=== PATIENT | male | born 1960 | race Caucasian/White ===

== ENCOUNTER 2020-11-19 14:36 | Emergency (ER) | payer OTHER ==
[~2020-11-19] VITALS: Ht 175.3 cm; Wt 86.4 kg
[2020-11-19 14:44] VITALS: Ht 175.3 cm; Wt 86.4 kg
[2020-11-19] MEDS ORDERED: LEXAPRO10 MG (14:48)
[2020-11-19] MEDS ORDERED: FISH OIL 1,0001 CA1 PO (14:48)
[2020-11-19] MEDS ORDERED: CIALIS10 MG PO (14:49)
[2020-11-19] MEDS ORDERED: PRAVACHOL20 MG PO (14:49)
[2020-11-19 15:19] LABS: BASOPHILS 1.5 % (0-2); EOSINOPHILS 1.8 % (0-7); HEMATOCRIT 43.5 % (42.0-54.0); HEMOGLOBIN 14.4 g/dL (13.5-17.5); IMMATURE GRANULOCYTES 0.2 % (0-5); LYMPHOCYTE ABS# 1.39 10x3/uL (1.32-3.57); LYMPHOCYTES 22.5 % (15-50); MCH 29.1 pg (26.0-34.0); MCHC 33.1 g/dL (31.0-37.0); MCV 87.9 fL (80.0-100.0); MEAN PLATELET VOLUME 11.1 fL (7.4-10.4); MONOCYTES 7.1 % (2-11); NEUTROPHIL ABS# 4.13 10x3/uL (1.78-5.38); NEUTROPHILS 66.9 % (40-80); PLATELET COUNT 200 10x3/uL (130-400); RBC 4.95 10x6/uL (4.20-6.10); RDW 12.6 % (11.5-14.5); WBC 6.2 10x3/uL (4.8-10.8)
[2020-11-19 15:28] LABS: APTT 32.3 SECONDS (22.8-39.4); INR 1.09 (0.85-1.17)
[2020-11-19 15:42] LABS: CALC OSMOLALITY 279 mosm/kg (275-300); CARBON DIOXIDE 29.3 mmol/L (21.0-32.0); CHLORIDE - SERUM 103 mmol/L (98-107); CREATININE - SERUM 1.2 mg/dL (0.6-1.3); GLUCOSE 109 mg/dL (74-106); POTASSIUM - SERUM 3.8 mmol/L (3.5-5.1); SODIUM 139 mmol/L (136-145); UREA NITROGEN 16 mg/dL (7-18); eGFR NON AFRICAN AMERICAN 65 mL/min (90-120)
[2020-11-19 15:59] LABS: ALBUMIN 3.5 g/dL (3.4-5.0); ALKALINE PHOSPHATASE 52 U/L (30-120); ALT (SGPT) 31 U/L (10-68); BILIRUBIN - TOTAL 0.25 mg/dL (0.2-1.3); CKMB 1.7 U/L (0.0-3.6); CREATINE KINASE 200 UL (21-232); MAGNESIUM - SERUM 2.1 mg/dL (1.8-2.4); PROTEIN - SERUM 7.2 g/dL (6.4-8.2); THYROID STIMULATING HORMONE 1.95 uIU/mL (0.36-3.74); TROPONIN-I < 0.017 ng/mL (0.000-0.060)
[2020-11-19 16:24] VITALS: BP 157/76
[2020-11-19] MEDS ORDERED: FLUTICASONE PRO16 GM NASAL (16:26)
[2020-11-19] MEDS ORDERED: ZYRTEC10 MG PO (16:26)
== END 2020-11-20 08:09 | disposition home or self-care (01) ==
LOC: D.ER 14:36
PROVIDERS: Emergency Medicine
DX: R42 Dizziness and giddiness (principal); J30.2 Other seasonal allergic rhinitis